=== PATIENT | female | born 1995 | race Caucasian/White ===

== ENCOUNTER 2020-03-23 12:22 | Inpatient (IN) | payer OTHER ==
[~2020-03-23] VITALS: Ht 165.1 cm; Wt 81.8 kg
[~2020-03-23 12:22] MED LIST: PREN1TAB10 PO
[2020-03-23 13:17] LABS: BASOPHILS # (AUTO) 0.04 x10^3/uL (0-0.1); BASOPHILS % (AUTO) 0 % (0-1); EOSINOPHILS # (AUTO) 0.18 x10^3/uL (0-0.4); EOSINOPHILS % (AUTO) 2 % (1-7); LYMPHOCYTES # (AUTO) 1.78 x10^3/uL (1-3.4); LYMPHOCYTES % (AUTO) 19 % (22-44); MD NO; MEAN CORPUSCULAR HGB CONC 33.5 g/dL (32.4-35.8); MEAN CORPUSCULAR VOLUME 89.6 fL (80-100); MEAN PLATELET VOLUME 7.2 fL (7.4-10.4); MONOCYTES # (AUTO) 0.84 x10^3/uL (0.2-0.8); MONOCYTES % (AUTO) 9 % (2-9); NEUTROPHILS # (AUTO) 6.78 x10^3/uL (1.8-6.8); NEUTROPHILS % (AUTO) 71 % (42-75); PLATELET COUNT 284 x10^3/uL (130-400); RED BLOOD COUNT 4.13 x10^6/uL (3.82-5.3); RED CELL DISTRIBUTION WIDTH 14.7 % (9.6-15.2)
[2020-03-23 13:19] LABS: MICROSCOPIC INDICATED
[2020-03-23 13:27] LABS: ALANINE AMINOTRANSFERASE 12 U/L (12-78); ALBUMIN 2.6 g/dL (3.4-5.0); ANION GAP 7 mmol/L (5-15); CALCIUM 8.7 mg/dL (8.5-10.1); CHLORIDE 109 mmol/L (98-107); CREATININE 0.53 mg/dL (0.55-1.02)
[2020-03-23 13:31] LABS: AMPHETAMINE SCREEN, URINE Negative (Negative); BARBITURATE SCREEN, URINE Negative (Negative); BENZODIAZEPINE SCREEN, URINE Negative (Negative); CANNABINOID SCREEN, URINE Negative (Negative); COCAINE SCREEN, URINE Negative (Negative); METHADONE SCREEN, URINE Negative (Negative); OPIATE SCREEN, URINE Negative (Negative); PROTEIN/CREATININE RATIO,URINE 267 (0-200); TOTAL PROTEIN,URINE RANDOM 20 mg/dL (0-12)
[2020-03-23 13:38] LABS: ALKALINE PHOSPHATASE 129 U/L (45-117); BILIRUBIN,TOTAL 0.3 mg/dL (0.2-1.0); TOTAL PROTEIN 6.5 g/dL (6.4-8.2)
[2020-03-23 13:40] LABS: BILIRUBIN, DIRECT < 0.1 mg/dL (0.1-0.2)
[2020-03-23] MEDS ORDERED: LACTATED RINGERS 1,000 ML IV SCH ×2 (15:35→19:42)
[2020-03-23] MEDS ORDERED: OXYTOCIN 30U/ 0.9% NaCL 500ML 500 ML IV PRN (15:35)
[2020-03-23] MEDS ORDERED: OXYTOCIN 30U/ 0.9% NaCL 500ML 500 ML IV ONE (15:35)
[2020-03-23] MEDS ORDERED: D5%-LACTATED RINGERS 1,000 ML IV SCH (15:35)
[2020-03-23] MEDS ORDERED: ALUMINUM/MAG/SIMETHICONE 30 ML UDC PO PRN (16:00)
[2020-03-23] MEDS ORDERED: FENTANYL PF 100 MCG/2ML IVPush PRN (16:00)
[2020-03-23] MEDS ORDERED: METOCLOPRAMIDE 5 MG/ML, 2ML IVPush PRN (16:00)
[2020-03-23] MEDS ORDERED: SODIUM CITRATE/CITRIC ACID 30 ML UDC PO PRN (16:00)
[2020-03-23] MEDS ORDERED: TERBUTALINE 1 MG/ML, 1ML IVPush PRN (16:00)
[2020-03-23] MEDS ORDERED: ONDANSETRON 2MG/ML, 2ML IVPush PRN ×2 (16:00→20:30)
[2020-03-23] MEDS ORDERED: SODIUM CHLORIDE FLUSH 10ML SYR IVF PRN (16:00)
[2020-03-23] MEDS ORDERED: TERBUTALINE 1 MG/ML, 1ML SQ PRN (16:00)
[2020-03-23] MEDS ORDERED: CALCIUM CARBONATE 500 MG TAB.CHEW PO PRN (16:00)
[2020-03-23] MEDS ORDERED: MISOPROSTOL 25 MCG TABLET VG PRN (16:00)
[2020-03-23] MEDS ORDERED: OXYTOCIN 30U/ 0.9% NaCL 500ML 500 ML ONE (16:04)
[2020-03-23] MEDS ORDERED: PENICILLIN GK 5,000,000 UNITS in DEXTROSE 5% 100 ML IVPB ONE (16:30)
[2020-03-23] MEDS ORDERED: LIDOCAINE 1%, 20ML ONE (16:32)
[2020-03-23] MEDS ORDERED: MISOPROSTOL 200 MCG TABLET ONE (16:32)
[2020-03-23] MEDS ORDERED: NEWBORN KIT ONE (16:32)
[2020-03-23] MEDS ORDERED: FENTANYL/BUPIV./NS/PF 250 ML EPIDCONT SCH ×2 (16:58→19:42)
[2020-03-23] MEDS ORDERED: LACTATED RINGERS 1,000 ML IVBOLUS PRN ×2 (17:00→20:00)
[2020-03-23] MEDS ORDERED: FENTANYL PF 500 MCG, BUPIVACAINE/PF 0.5%, 30ML 62.5 ML in SODIUM CHLORIDE 0.9% 177.5 ML EPIDCONT SCH (17:30)
[2020-03-23] MEDS ORDERED: BUPIVACAINE 0.25% ONE (19:07)
[2020-03-23] MEDS ORDERED: EPHEDRINE 50 MG/ML, 1ML IVPush PRN (20:00)
[2020-03-23] MEDS ORDERED: NALOXONE 0.4 MG/ML, 1ML IVPush PRN (20:00)
[2020-03-23] MEDS: PENICILLIN GK 2,500,000 UNITS in DEXTROSE 5% 100 ML IVPB SCH (20:30)
[2020-03-23] MEDS ORDERED: DIPHENHYDRAMINE 50 MG/ML, 1ML IVPush PRN (20:30)
[2020-03-23] MEDS ORDERED: CALCIUM CARBONATE 500 MG TAB.CHEW ONE ×2 (20:41)
[2020-03-24] MEDS ORDERED: CALCIUM CARBONATE 500 MG TAB.CHEW ONE (00:08)
[2020-03-24] MEDS: PENICILLIN GK 2,500,000 UNITS in DEXTROSE 5% 100 ML IVPB SCH (00:30)
[2020-03-24] MEDS ORDERED: OXYTOCIN 30U/ 0.9% NaCL 500ML 500 ML IV SCH (01:59)
[2020-03-24] MEDS ORDERED: BISACODYL 10 MG SUPP PR PRN (02:00)
[2020-03-24] MEDS ORDERED: ONDANSETRON 2MG/ML, 2ML IV PRN (02:00)
[2020-03-24] MEDS ORDERED: MISOPROSTOL 200 MCG TABLET PR PRN (02:00)
[2020-03-24] MEDS ORDERED: IBUPROFEN 800 MG TABLET PO PRN (02:00)
[2020-03-24] MEDS ORDERED: OXYcodone/APAP 5/325MG TABLET PO PRN (02:00)
[2020-03-24] MEDS ORDERED: ACETAMINOPHEN 325 MG TABLET PO PRN (02:00)
[2020-03-24] MEDS ORDERED: RHOGAM FROM BLOOD BANK 1 NOTE EA IM/IV ONE (02:00)
[2020-03-24] MEDS ORDERED: HYDROcodone/APAP 5/325 TABLET PO PRN (02:00)
[2020-03-24 04:15] VITALS: BP 105/67
[2020-03-24 07:20] VITALS: BP 110/68
[2020-03-24] MEDS: PRENATAL VIT/IRON/FA 1 EACH TABLET PO SCH (09:05)
[2020-03-24 12:17] LABS: MEAN CORPUSCULAR HEMOGLOBIN 29.9 pg (27.0-34.8); MEAN CORPUSCULAR VOLUME 90.6 fL (80-100); MEAN PLATELET VOLUME 7.5 fL (7.4-10.4); PLATELET COUNT 239 x10^3/uL (130-400); RED BLOOD COUNT 4.06 x10^6/uL (3.82-5.3)
[2020-03-24 12:20] VITALS: BP 113/76
[2020-03-24 12:31] LABS: BASOPHILS % (AUTO) 0 % (0-1); EOSINOPHILS # (AUTO) 0.03 x10^3/uL (0-0.4); EOSINOPHILS % (AUTO) 0 % (1-7); LYMPHOCYTES # (AUTO) 1.51 x10^3/uL (1-3.4); LYMPHOCYTES % (AUTO) 9 % (22-44); MD SCAN; MONOCYTES % (AUTO) 7 % (2-9); NEUTROPHILS # (AUTO) 14.11 x10^3/uL (1.8-6.8); NEUTROPHILS % (AUTO) 84 % (42-75)
[2020-03-24 16:20] VITALS: BP 108/72
[2020-03-24 18:50] VITALS: BP 124/70
[2020-03-24] MEDS: DOCUSATE 100 MG CAPSULE PO PRN (19:20)
[2020-03-25] VITALS: BP 127/81
[2020-03-25 03:15] VITALS: BP 119/77
[2020-03-25 08:10] VITALS: BP 119/76
[2020-03-25] MEDS: DOCUSATE 100 MG CAPSULE PO PRN (10:19)
[2020-03-25] MEDS ORDERED: DOCU-131 PO (10:19)
[2020-03-25] MEDS ORDERED: IBUP-1222 PO (10:19)
[2020-03-25] MEDS: PRENATAL VIT/IRON/FA 1 EACH TABLET PO SCH (10:19)
== END 2020-03-25 13:33 | disposition home or self-care (01) | DRG 807 ==
LOC: LDOP 12:22 → LDIP 15:46 → 2NW 03-24 03:45
PROVIDERS: ADMIT Obstetrics & Gynecology; ATTEND Obstetrics & Gynecology
PROC: 10E0XZZ Delivery of Products of Conception, External Approach (ICD-10-PCS; principal; 2020-03-24)
DX: O45.93 Premature separation of placenta, unspecified, third trimester (principal); Z37.0 Single live birth; O16.4 Unspecified maternal hypertension, complicating childbirth; E78.00 Pure hypercholesterolemia, unspecified; O76 Abnormality in fetal heart rate and rhythm complicating labor and delivery; O99.284 Endocrine, nutritional and metabolic diseases complicating childbirth; Z85.3 Personal history of malignant neoplasm of breast; Z83.3 Family history of diabetes mellitus; Z3A.36 36 weeks gestation of pregnancy
CPT/HCPCS: 36415; J7121; S0020; 76819; 80053; 80307; 81001; 82248; 82570; 82803; 84156; 84439; 84443; 84550; 85025; 86592; 88307; G0378; J2540; J3010; J7050; J7120; U0001-CS